=== PATIENT | male | born 1990 | race African-American/Black ===

== ENCOUNTER 2016-08-01 06:25 | Emergency (ER) | payer SELFPAY ==
--- NOTE | 2016-08-03 01:40 | ER ---
DATE SEEN: 08/01/2016 TIME SEEN: The patient was seen at 0710 hours. CHIEF COMPLAINT: Tooth pain. HISTORY OF PRESENT ILLNESS: This 26-year-old, a [employer] student, comes in with a 3- day history of right #30 tooth pain. He has emergence of his wisdom tooth. No fever. He has mild submandibular discomfort. No fever. No chills. No sore throat. Nonsmoker. SIGNIFICANT ILLNESSES: None. No diabetes, heart disease, high blood pressure, bleeding disorder, asthma, or other serious illnesses. MEDICATIONS: He is not on any medication. ALLERGIES: He has allergies to iodine. PHYSICAL EXAMINATION: GENERAL: Pleasant, well muscled athlete, who has moderate discomfort of tooth #30 with gentle percussion. Otherwise, his teeth are good, he has good hygiene. There is encroachment on his wisdom tooth. The pain is moderate. Gingiva appear to be healthy. ASSESSMENT: Dental pain, etiology probably secondary to encroachment of wisdom tooth #32 on tooth #30. PLAN: Treat for potential infection. [facility]. Amoxil 875 mg b.i.d., 20 tablets given and 10 tablets of Vicodin as needed for pain. Otherwise, use 1000 mg of Tylenol plus 600 mg of ibuprofen every 6 hours for pain. /[id number] AKSHAT/ISABEL
== END 2016-08-01 07:45 | disposition home or self-care (01) ==
LOC: FB.ED 06:25
CPT/HCPCS: 99282; 99283